=== PATIENT | male | born 1945 | race Caucasian/White ===

== ENCOUNTER → 2025-07-09 11:50 | Outpatient (REF) | payer MEDICARE, SELFPAY ==
[2025-07-09 14:50] LABS: Glycohemoglobin (HgbA1c) 6.3 % (4.0-5.6)
[2025-07-09 15:00] LABS: C-Reactive Protein < 5.00 mg/L (0.0-10.00)
[2025-07-09 15:17] LABS: ALT (SGPT) 26 U/L (0-50); AST (SGOT) 27 U/L (17-59); Albumin 4.8 g/dl (3.5-5.0); Alkaline Phosphatase 78 U/L (38-126); Blood Urea Nitrogen 34 mg/dl (9-20); Calcium 10.3 mg/dl (8.4-10.2); Carbon Dioxide 26 mmol/L (22-30); Chloride 103 mmol/L (98-107); Glucose 102 mg/dl (70-99); HDL Cholesterol 46 mg/dl; LDL Cholesterol, Calculated 89 mg/dl; Potassium 5.3 mmol/L (3.5-5.1); Sodium 138 mmol/L (135-145); Total Protein 7.7 g/dl (6.3-8.2); Very Low Density Lipoprotein 49 mg/dl (0-30); Vitamin D, 25-OH*** 68.3 ng/mL (30-80); eGFR 40.25
[2025-07-09 15:31] LABS: Microalb - Urine Creatinine 80.900 mg/dl
[2025-07-09 15:31] LABS: PSA, Total - Screen 1.26 ng/ml (0.0-4.0)
[2025-07-09 15:32] LABS: Microalbumin, Random Urine 2.3 mg/dl (0.6-1.7)
== END ==
LOC: REG 11:50
PROVIDERS: OTHER PHYSICIAN Hospitalist
DX: E78.5 Hyperlipidemia, unspecified (principal); E56.8 Deficiency of other vitamins; E11.9 Type 2 diabetes mellitus without complications; E55.9 Vitamin D deficiency, unspecified; R97.20 Elevated prostate specific antigen [PSA]; I25.10 Atherosclerotic heart disease of native coronary artery without angina pectoris; Z12.5 Encounter for screening for malignant neoplasm of prostate; E11.22 Type 2 diabetes mellitus with diabetic chronic kidney disease
CPT/HCPCS: 36415; 80053; 80061; 82043; 82248; 82306; 82550; 82570; 83036; 86140; G0103

== ENCOUNTER → 2025-07-18 14:28 | Outpatient (REF) | payer MEDICARE, OTHER, SELFPAY | LOC: RAD 14:28 | PROVIDERS: ATTENDING PHYSICIAN Hospitalist | DX: I71.40 Abdominal aortic aneurysm, without rupture, unspecified (principal) | CPT/HCPCS: 74174; Q9967 ==

== ENCOUNTER 2025-08-21 08:59 | Inpatient (IN) | payer MEDICARE, OTHER, SELFPAY ==
[2025-08-10 09:08] VITALS: BMI 36.6
[2025-08-10 09:56] LABS: Hematocrit 42.4 % (39.0-52.0); Hemoglobin 14.7 g/dL (13.0-18.0); Mean Corp Hgb Conc. 34.7 g/dL (33.0-37.0); Mean Corpuscular Volume 89.8 fL (80.0-94.0); Nucleated Red Blood Cells % 0 % (-); Platelet Count 118 10^3/uL (130-400); Red Cell Dist. Width 12.8 % (11.5-14.5)
[2025-08-10 10:01] LABS: APTT 26.1 Sec (23.4-35.0); INR 0.90; PT 12.5 Sec (11.4-14.6)
[2025-08-10 10:22] LABS: Blood Urea Nitrogen 26 mg/dl (9-20); Calcium 10.0 mg/dl (8.4-10.2); Carbon Dioxide 30 mmol/L (22-30); Chloride 102 mmol/L (98-107); Estimated Creatinine Clearance 48 ml/min; Glucose 112 mg/dl (70-99); Potassium 4.6 mmol/L (3.5-5.1); Sodium 137 mmol/L (135-145); eGFR 50.81
[2025-08-21] VITALS (10 sets, daily range): BP systolic 104–162; BP diastolic 44–75; BMI 35.8
--- NOTE | 2025-08-21 09:42 | W.SUR.PREOP ---
Pre-Operative Surgical Note
-
I have examined this patient prior to the performance of the scheduled procedure.
The patient's condition is unchanged from the time of the current History and
Physical and the patient is able to undergo the scheduled procedure.
[2025-08-21] MEDS: PERIDEX 0.12% ORAL RINSE 15 ML PO (10:06)
[2025-08-21] MEDS: BACTROBAN NASAL 1 GRAM NASAL (10:06)
[2025-08-21 10:44] LABS: Glucose - Point of Care 160 mg/dl (70-99)
[2025-08-21] MEDS: VANCOCIN 530 MG IV (10:53)
[2025-08-21 12:48] LABS: ACT-LR - POC 261 Seconds (116-155)
[2025-08-21 13:03] LABS: ACT-LR - POC 256 Seconds (116-155)
[2025-08-21 14:04] LABS: Glucose - Point of Care 170 mg/dl (70-99)
--- NOTE | 2025-08-21 14:17 | OR.RPT ---
Operative Report
Operative Report
Date of Operation: 08/21/2025
Pre Op Diagnosis: Abdominal aortic aneurysm
Post Op Diagnosis: Abdominal aortic aneurysm
Procedure:
1. Endovascular aortic aneurysm repair using Endologix AFX2 device:
AFX2 main body
28�75 suprarenal proximal extension
2. Insert wire and catheter into aorta from bilateral femoral artery access
3. Bilateral percutaneous common femoral artery access
4. Bilateral Pro-glide closures of common femoral artery access
Surgeon: Franki Byrd III, MD
Manager Bilingual: Dave Queen MD PGY2
Anesthesia: General
Fluoroscopy:
19.2 minutes
1004 mGy
DAP: 395.05
Complications: None
Estimated Blood Loss: Less than 50 cc
History and Indications for Procedure: 80-year-old male with large infrarenal abdominal aortic aneurysm.
Procedure in Detail: Masood Donaldson was correctly identified and placed supine on the operating table. After adequate induction of anesthesia the abdomen, pelvis and bilateral groins were positioned, prepped and draped in the usual sterile fashion.
Preoperative antibiotics were administered. A timeout procedure was performed with the nursing and anesthesia staff confirming the patients identity as well as the nature and laterality of the procedure.
Under ultrasound guidance, bilateral femoral artery sheath access was obtained. The arteries were patent. Calcified plaque was identified bilaterally. A pre-close technique was performed on the right femoral artery access with 2 offset Proglide
closure devices. The sutures were secured and tucked under surgical towels for use at the end of the case. An 8 Fr sheath was placed into the right femoral access. A 7 Fr sheath was placed into the left femoral access. The patient was systemically
heparinized.
From the right femoral access an KMP catheter and Bentson wire were advanced to the proximal descending thoracic aorta. The wire was exchanged out through the catheter for a Lunderquist wire. From the left femoral access a Bentson wire was advanced
into the abdominal aorta.
Over the Lunderquist wire in the right femoral access I placed the AFX introducer sheath and advanced the radio-opaque sheath tip to the abdominal aorta. An En-Snare catheter was placed over a PROVENTIX SYSTEMSson wire from the left femoral access and advanced
to the aortic bifurcation. The En-Snare was then advanced through to the catheter tip.
The contralateral limb wire of the AFX2 main body was introduced through the introducer sheath and advanced to the aortic bifurcation. The 25-70/20-30 AFX2 bifurcated main body was then loaded onto the Lunderquist wire and advanced through the
introducer sheath. The wire was snared from the contralateral side and pulled out the left femoral access and the AFX2 main body was advanced until the limbs were above the aortic bifurcation. The entire system was then pulled down onto the aortic
bifurcation. The main body was then deployed by pulling the control cord.
The contralateral limb was then deployed by pulling the yellow limb cover. Once this was completed I advanced a pigtail catheter over the contralateral limb wire until the tip was in contact with the wire lock. The contralateral limb was then pulled
as I advanced the pigtail up to release it from the wire lock. The wire was removed and the formed pigtail catheter was then advanced proximally.
The ipsilateral limb was deployed by pinning the inner core and retracting the AFX introducer sheath.
Through the introducer sheath I advanced a 28�75 suprarenal endograft extension and performed an arteriogram to clearly visualize the renal arteries. The stent was positioned appropriately below the renal arteries and deployed under roadmap guidance
in the desired location.
The delivery system was removed. A Coda balloon was introduced and used to profile the proximal and distal seal zones as well as all areas of overlap. A 12 mm x 40 mm angioplasty balloon was used to profile the left iliac limb.
A completion aortogram demonstrated an excellent technical result. The aneurysm was excluded. No endoleaks were seen. There was brisk flow through the stent and iliac limbs. The renal arteries were widely patent bilaterally. The iliac bifurcations
were preserved bilaterally. An additional retrograde iliac arteriogram was performed through the left 7 Welsh sheath. There was no type Ib endoleak from the left iliac limb.
The Proglide sutures were secured on the right after removing the sheath and wires. Protamine was administered. A single Pro-glide was deployed across the left femoral access after removing the 7 Welsh sheath. Additional pressure was applied to
the puncture sites bilaterally for 5 minutes. Hemostasis was achieved bilaterally.
Sterile skin glue was applied to the puncture sites bilaterally.
The patient tolerated the procedure well and was taken to the PACU in stable condition.
Attestation: I was present and responsible for the entire procedure
Signed:
Franki Byrd III, MD
Vascular Surgery
[facility]
[2025-08-21 14:58] LABS: Hematocrit 35.8 % (39.0-52.0); Hemoglobin 12.4 g/dL (13.0-18.0); Mean Corp Hgb Conc. 34.6 g/dL (33.0-37.0); Mean Corpuscular Volume 89.3 fL (80.0-94.0); Platelet Count 92 10^3/uL (130-400); Red Cell Dist. Width 13.1 % (11.5-14.5)
[2025-08-21 15:12] LABS: Glucose - Point of Care 154 mg/dl (70-99)
[2025-08-21 15:36] LABS: Blood Urea Nitrogen 19 mg/dl (9-20); Calcium 8.6 mg/dl (8.4-10.2); Carbon Dioxide 22 mmol/L (22-30); Chloride 106 mmol/L (98-107); Estimated Creatinine Clearance 55 ml/min; Glucose 180 mg/dl (70-99); Potassium 3.9 mmol/L (3.5-5.1); Sodium 134 mmol/L (135-145); eGFR > 60.00
--- NOTE | 2025-08-21 15:48 | CON.INTV ---
Consultation
Consultation Request
Date/Time Consultation Requested: 08/21/2025
Date/Time Consultation Performed: 08/21/2025
Medical History
-
Chief Complaint: Enlarging aortic aneurysm
History of Present Illness:
Patient is a very pleasant 80-year-old gentleman with known history of abdominal aortic aneurysm which was noted to have growing infrarenal aneurysm. He was evaluated by cardiology and vascular surgery as outpatient and was recommended to have
endovascular repair performed. Patient was admitted to the hospital for above-mentioned procedure and post surgery was admitted to ICU. Head Field Hockey Coach consultation was requested for further input.
Past medical history. Diabetes, hypertension, hyperlipidemia, coronary artery disease status post PCI and coronary artery bypass graft, fracture, basal cell carcinoma face, triple negative.
Surgical history. Coronary artery bypass grafting 2009, PCI most recently 2021, appendectomy, Mohs procedure for basal cell carcinoma.
Family history. No reported history of lung cancer in the family.
Social history. Prior history of smoking, quit in 1982.
Allergies / Home Medications
Allergies
Allergy/AdvReac Type Severity Reaction Status Date / Time
ampicillin Allergy Itching, Verified 08/21/25 09:49
rash
Penicillins Allergy itching, Verified 08/21/25 09:49
rash
Home Medications
�Medication �Instructions �Recorded �Confirmed �Last Taken �Type
Laxative 1 dose PO PRN PRN constipation 08/07/25 08/07/25 Unknown History
aspirin 81 mg tablet 81 mg PO DAILY 08/07/25 08/21/25 08/20/25 20:00 History
azilsartan medoxomil 40 mg tablet 40 mg PO DAILY 08/07/25 08/21/25 08/21/25 07:30 History
(Edarbi)
clopidogrel 75 mg tablet (Plavix) 75 mg PO DAILY 08/07/25 08/21/25 08/20/25 20:00 History
dapagliflozin propanediol 10 mg 10 mg PO DAILY 08/07/25 08/21/25 08/17/25 07:00 History
tablet (Farxiga)
diltiazem HCl 120 mg 120 mg PO HS 08/07/25 08/21/25 08/20/25 20:00 History
capsule,extended release 24 hr
diltiazem HCl 180 mg 180 mg PO DAILY 08/07/25 08/21/25 08/21/25 07:30 History
tablet,extended release 24 hr
evolocumab 140 mg/mL subcutaneous 140 mg SC Q2W 08/07/25 08/21/25 08/02/25 08:00 History
pen injector (Repatha SureClick)
icosapent ethyl 1 gram capsule 2 g PO BID 08/07/25 08/21/25 08/21/25 07:30 History
(Vascepa)
tirzepatide 10 mg/0.5 mL 10 mg SC QWEEK 08/07/25 08/21/25 08/10/25 08:00 History
subcutaneous pen injector
(Mounjaro)
vit C 250 mg-E 90 mg-zinc 40 2 tab PO BID 08/07/25 08/21/25 08/17/25 08:00 History
mg-copper 1 pa-vbawtc-tzxrtb chew
tablet (PreserVision AREDS-2)
ergocalciferol (vitamin D2) 1,250 1,250 mcg PO TUTH@08 Supplement 08/21/25 08/21/25 08/09/25 History
mcg (50,000 unit) capsule
metformin 500 mg tablet,extended 500 mg PO TID Diabetes 08/21/25 08/21/25 08/20/25 18:00 History
release 24 hr
Review of Systems
-
Hematologic/Lymphatic: Other (All 14 systems reviewed and negative except as stated above in the history of present illness.)
Vitals / Labs / Diagnostic Testing
Vital Signs
Temp Pulse Resp BP Pulse Ox
96.5 F L 51 19 123/59 97
08/21/25 15:37 08/21/25 15:15 08/21/25 15:15 08/21/25 15:11 08/21/25 15:15
Lab Data
08/21/25 14:15
08/21/25 14:15
Diagnostic Testing:
Physical Exam
-
HEENT: Normocephalic
Cardiovascular: S1/S2
Respiratory: Clear and Non-Labored Respirations
GI: Soft and Non Distended
Neurology: Awake and Alert
Skin: Warm
General: Comfortable
Assessment
-
Patient is a 80-year-old gentleman with enlarging infrarenal abdominal aortic aneurysm, s/p endovascular aortic aneurysmal repair by vascular surgery service, POD #0
Continue observation following procedure
Follow neurovascular checks per protocol
ASA, Clopidogrel PO ordered.
Follow BP monitoring and parameters as set by primary team
Cardiac history reviewed
Monitor on telemetry
Pain control per protocol
RASS goal 0
Remote history of smoking, quit in 1982. Incidental finding of pulmonary nodule
CXR reviewed indicating no acute disease
No prior PFTs for review
Encouraged IS
Diet advancement per protocol
Aspiration precautions
GI prophylaxis: Protonix
Cr at baseline, follow UO
Critical I/Os
Void trials
Replete electrolytes as needed
No signs/symptoms suspicious for infectious etiology at this time
Will observe off antibiotics for now
Follow temperatures/CBC
Hb and platelets postoperatively stable
DVT prophylaxis: Heparin s.c.
Other medical diagnoses:
- History of coronary artery disease, s/p coronary artery bypass graft
- History of percutaneous intervention for coronary artery disease (2021)
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
- Hypertension
- Hyperlipidemia
- Diabetes
- RLL pulmonary nodule, incidental [address] A/P 07/2025. Needs outpatient follow-up with PCM in pulmonary clinic. Information added to discharge section
Critical Care time [62 ] mins -- The patient is admitted for acute critical illness for the treatment of vital organ failure and/or prevention of further life-threatening conditions. Total care includes time spent in review of history, physical
exam, medications, hemodynamic/ventilator parameters, laboratory data, imaging and discussion with house staff, pharmacy, respiratory therapy, technology consultant, and nursing
Data:
CXR 08/2025: Unremarkable
CT A/P 07/2025: Infrarenal abdominal aortic aneurysm measuring 5.3 cm. Minimally increased.
Severe atherosclerotic vascular disease. Stable
Gallstone. Stable
Diverticulosis. StableModerate fecal material throughout the colon. Stable
Mild diffuse bladder wall thickening. This can be seen with cystitis and bladder outlet obstruction.
Pulmonary nodules. Stable. The [facility] Pulmonary Nodule Advisory Board will be automatically informed of the findings.
ECHO 04/2023: LVEF 50%, mild LVH. Normal RV. Mild tricuspid regurgitation with pulmonary artery systolic pressure 35.
Stress test 09/2022: Mild reversible defect. Subseuquently had LHC and PCI
[2025-08-21] MEDS: NSS 500 IV (16:04)
[2025-08-21] MEDS: NSS 1000 IV (16:04)
[2025-08-21] MEDS: PROTONIX 40 MG PO (16:05)
[2025-08-21] MEDS: TYLENOL 650 MG PO ×2 (16:05→20:05)
[2025-08-21] MEDS: LOW STRENGTH ASPIRIN 81 MG PO (16:05)
[2025-08-21] MEDS: PLAVIX 75 MG PO (16:05)
[2025-08-21 16:19] LABS: Troponin I 0.032 ng/ml
[2025-08-21 16:26] LABS: Magnesium 2.1 mg/dl (1.6-2.3)
[2025-08-21 16:48] LABS: Glucose - Point of Care 137 mg/dl (70-99)
--- NOTE | 2025-08-21 17:17 | PTCARENOTE ---
Pt admitted to ICU s/p EVAR. Sinus bradycardia with BBB. Reported VT in transit from PACU not witnessed in ICU. Neuro and NV checks WNL. Tolerated HOB flat for 2hr then HOB to 30deg. No N/V after water and meds, adv diet. Byrd draining clear
yellow urine. Bilat femoral arterial sites closed with skin glue, soft. NSS at 80cc/hr, A-line leveled and zeroed.
[2025-08-21] MEDS: HEPARIN 5000 UNITS SC (20:02)
[2025-08-21] MEDS: OCUVITE SOFTGEL 2 CAP PO (20:02)
--- NOTE | 2025-08-21 20:54 | PTCARENOTE ---
Received pt from previous RN. Pt is AAOx3, [place]. Sinus gary in the 40s w/ BBB and prolonged QT, doppler pulses. Site checks per protocol (see worklist). Pt on RA O2 sat 92%, lungs clear. Abd round/obese. Byrd in place, hygiene provided. B/l groin
sites c/d/i. Pt c/o a sore throat, PRN Tylenol given (see MAR). NS infusing @ 80 ml/hr. Right radial sariah zeroed and transduced. CHG bath provided. Call villanueva in reach. Safe environment maintained.
[2025-08-21] MEDS: CARDIZEM CD 120 MG PO (21:08)
[2025-08-21 21:23] LABS: Glucose - Point of Care 187 mg/dl (70-99)
[2025-08-21 21:48] LABS: Troponin I 0.172 ng/ml
[2025-08-21] MEDS: NEO-SYNEPHRINE 250 IV (22:41)
--- NOTE | 2025-08-21 22:51 | PTCARENOTE ---
Pt BP 98/34 (55), Jean Paul gtt started (see worklist).
[2025-08-22] VITALS (10 sets, daily range): BP systolic 126–175; BP diastolic 48–64; BMI 36.7
[2025-08-22] MEDS: TYLENOL 650 MG PO (01:40)
--- NOTE | 2025-08-22 02:05 | PTCARENOTE ---
Pt coughed up a small amount of bloody sputum, ICU GREASE CUP FILLER notified. Hgb stable.
[2025-08-22] MEDS: NSS 1000 IV (03:03)
--- NOTE | 2025-08-22 03:08 | DOWNTIME ---
There was a [employer] Client Sports Attorney Downtime on 08/22/2025 from 0100 to 08/22/2025 at 0255. Downtime documentation of patient's care, including medication administrations, has been reconciled in the electronic record per guidelines. Refer to the
patient's paper chart under the miscellaneous tab to see printed paper medication records and downtime forms.
--- NOTE | 2025-08-22 03:55 | PTCARENOTE ---
Pt asleep O2 sat dropped to 80%, pt placed on 2L NC O2 sat 97%. AM labs provided. Call villanueva in reach. Safe environment maintained.
[2025-08-22 04:20] LABS: INR 1.00; PT 13.5 Sec (11.4-14.6)
[2025-08-22 04:21] LABS: APTT 26.6 Sec (23.4-35.0)
[2025-08-22 04:27] LABS: Hematocrit 35.1 % (39.0-52.0); Hemoglobin 12.4 g/dL (13.0-18.0); Mean Corp Hgb Conc. 35.3 g/dL (33.0-37.0); Mean Corpuscular Volume 90.5 fL (80.0-94.0); Platelet Count 114 10^3/uL (130-400); Red Cell Dist. Width 13.2 % (11.5-14.5)
[2025-08-22 04:41] LABS: Blood Urea Nitrogen 16 mg/dl (9-20); Calcium 8.4 mg/dl (8.4-10.2); Carbon Dioxide 25 mmol/L (22-30); Chloride 109 mmol/L (98-107); Estimated Creatinine Clearance 56 ml/min; Glucose 145 mg/dl (70-99); Potassium 4.3 mmol/L (3.5-5.1); Sodium 137 mmol/L (135-145); eGFR > 60.00
[2025-08-22 05:00] LABS: Troponin I 0.159 ng/ml
[2025-08-22 07:26] LABS: Glucose - Point of Care 154 mg/dl (70-99)
[2025-08-22] MEDS: HEPARIN 5000 UNITS SC (07:29)
[2025-08-22] MEDS: OCUVITE SOFTGEL 2 CAP PO (07:30)
[2025-08-22] MEDS: PROTONIX 40 MG PO (07:30)
[2025-08-22] MEDS: PLAVIX 75 MG PO (07:30)
[2025-08-22] MEDS: LOW STRENGTH ASPIRIN 81 MG PO (07:30)
--- NOTE | 2025-08-22 07:49 | PTCARENOTE ---
report received, assessments per work list. patient c/o mild throat soreness. refuses Tylenol. alert and oriented. monitor bradycardic, prolonged QT and BBB. ankit turned off, right radial arterial line with good waveform, blood return. Cardizem not
given due to bradycardia. lungs with diminished breath sounds. placed on room air, IS encouraged. abdomen obese. active bowel sounds. Byrd draining clear yellow urine. refused blood sugar coverage. vascular team at bedside. call villanueva at reach.
orders pending
[2025-08-22] MEDS: COZAAR 50 MG PO (08:17)
--- NOTE | 2025-08-22 08:26 | W.PN.VS ---
Addendum entered and electronically signed by Chay Shaw MD 08/22/25 10:24:
Seen and examined with WESTON Bell. Agree with findings as noted below. No complaints. Abdomen soft, nondistended, nontender. Groins flat bilaterally. Small incisions clean dry and intact bilaterally. Feet both warm. Plan/as discussed and noted
below.
Original Note:
Today's Communication / Plan
-
Patient seen and examined at bedside with Dr. Chay Shaw, below plan reviewed with attending
Assessment/Plan
-
Assessment: 80-year-old male POD #1 EVAR for AAA
Plan:
Discontinue arterial line
Discontinue Byrd catheter
Out of bed to chair with progression to ambulation as tolerated
Cardiology consultation pending, troponin slightly increased but trending down on third result, patient asymptomatic will await recommendations
Continue DAPT of aspirin 81 mg p.o. daily and Plavix 75 mg p.o. daily
Possible discharge later this afternoon pending cardiology recommendations
Subjective Data
-
Date of Service: August 22, 2025
Patient seen examined at bedside, offers no complaints. Endorses that he feels 'excellent, 'and denies pain, nausea, vomiting, fever, and chills. Denies chest pain.
Objective Data
-
Vital Signs
Temp Pulse Resp BP Pulse Ox
97.6 F 44 9 132/48 95
08/22/25 07:24 08/22/25 08:17 08/22/25 07:45 08/22/25 08:17 08/22/25 07:45
Intake and Output
08/21/25 08/22/25 08/23/25
06:59 06:59 06:59
Intake Total 2862 / 2948 406 / 406
Output Total 2068 / 206 125 / 125
Balance 793 / 879 281 / 281
Intake:
Oral fluids 1540 / 1540 240 / 240
IV fluids (Total) 1322 / 1408 166 / 166
Jean Paul 42 / 48 6 / 6
Nss 1,000 ml @ 80 mls/hr IV . 1280 / 1360 160 / 160
[id number] LACEY Rx#:[id number]
Output:
Urine, Byrd 2068 125 / 125
Lab Results
08/22/25 04:00
08/22/25 04:00
Calcium 8.4 mg/dl (8.4-10.2) 08/22/25 04:00
Phosphorus Cancelled 08/21/25 15:25
Magnesium Cancelled 08/21/25 15:25
Physical Exam
-
No apparent distress, resting in bed comfortably
No tachycardia, heart rate currently in the 50s
No dyspnea on room air
ABD rotund, nondistended, nontender
Bilateral groin puncture sites clean, dry, and with Exofin glue intact, no evidence of hematoma, all surrounding compartments soft
Byrd draining clear urine
Bilateral feet warm, palpable +1 DP
--- NOTE | 2025-08-22 08:29 | CON.CAR ---
Addendum entered and electronically signed by Bryan Magaña MD 08/22/25 13:43:
Echo reviewed with normal LV function and no segmental wall motion abnormalities
Maintaining sinus rhythm on telemetry with no significant ventricular ectopy
Given bradycardia we will plan to decrease diltiazem 120 mg once daily
Stable for discharge from my perspective, outpatient follow-up to be arranged
Addendum entered and electronically signed by Bryan Magaña MD 08/22/25 10:53:
I saw and examined the patient.
The Winder Tender's note was reviewed and I agree with the note.
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 Postop patient was noted to have nonsustained ventricular tachycardia on a portable monitor for
which cardiology was consulted.
I reviewed available telemetry from the PACU as well as ICU which shows sinus rhythm with rare PACs. Some tracings show artifact but I do not see any clear episodes of nonsustained VT.
Patient has been asymptomatic without any chest discomfort, shortness of breath, palpitations or presyncope/syncope
Keep on telemetry while here
Replete electrolytes K>4, Mg>2
Continue home diltiazem
Check echo
We discussed outpatient monitoring engineer but he declined
Troponin elevation noted
Patient has been asymptomatic
No acute ischemic changes on ECG
Check echo as above
Continue aspirin/Plavix and high intensity statin for empiric treatment of known CAD
If echo is unremarkable okay for discharge later today with outpatient follow-up in our office
Original Note:
Consultation
Consultation Request
Date/Time Consultation Requested: 08/21/2025 at 1530
Date/Time Consultation Performed: 08/22/2025 at 0830
Requesting Provider: Dr. Byrd
Performing Provider: Dr. Magaña
Reason for Consultation: Possible NSVT
Medical History
-
History of Present Illness:
Patient came to the hospital yesterday for planned EVAR for known AAA and was admitted postop and noted to have an episode of NSVT prompting cardiology consultation. Patient used to live in work in [place], but now living locally and underwent
planned EVAR for AAA on 08/21/2025. Patient was seen for preoperative cardiovascular risk stratification in the cardiology office on 08/01/2025 and at that point he was asymptomatic without any chest pain or SOB and overall felt to be stable to
proceed with surgery at elevated but not prohibitive risk. Patient denied any intercurrent illness. Following procedure yesterday while being transported with the use of portable monitor patient was removed from the PACU to the ICU and nursing
reported seeing NSVT on the monitor. Patient has a baseline chronic RBBB and LAFB. No rhythm strips are able to be captured from the monitor. 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
the nurses were saying with regards to possible NSVT and denies feeling any symptomatic changes during that time period, he specifically denies any lightheadedness near syncope or chest pain. Patient has remained on telemetry since then without
evidence of arrhythmia, artifact is frequently being flagged as NSVT likely related to his underlying RBBB and LAFB. Patient previously followed with a director of staff development in [place] and records obtained were handwritten and deciphered to the best of our
ability at his office visit on 08/01/2025. No previous echo report available.
PMH:
CAD
CABG 2015
PCI of unknown vessels in 2004 and 2021
Chronic RBBB and LAFB
HTN
Hyperlipidemia
DM 2
CKD 2
Past Medical History
Past Medical History: Other (In HPI)
Past Surgical History: Appendectomy and Cardiac (CABG 2009, PCI 2004 and 2022)
Social History
Tobacco: Former Smoker
Alcohol: Occasional (1-2 times a week)
Drug: None
Personal:
Living: With Family
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
Family History
Family History: CAD (CAD, [place])
Allergies / Home Medications
Allergy/AdvReac Type Severity Reaction Status Date / Time
ampicillin Allergy Itching, Verified 08/21/25 09:49
rash
Penicillins Allergy itching, Verified 08/21/25 09:49
rash
�Medication �Instructions �Recorded �Confirmed �Type
Laxative 1 dose PO PRN PRN constipation 08/07/25 08/07/25 History
aspirin 81 mg tablet 81 mg PO DAILY 08/07/25 08/21/25 History
azilsartan medoxomil 40 mg tablet 40 mg PO DAILY 08/07/25 08/21/25 History
(Edarbi)
clopidogrel 75 mg tablet (Plavix) 75 mg PO DAILY 08/07/25 08/21/25 History
dapagliflozin propanediol 10 mg 10 mg PO DAILY 08/07/25 08/21/25 History
tablet (Farxiga)
diltiazem HCl 120 mg 120 mg PO HS 08/07/25 08/21/25 History
capsule,extended release 24 hr
diltiazem HCl 180 mg 180 mg PO DAILY 08/07/25 08/21/25 History
tablet,extended release 24 hr
evolocumab 140 mg/mL subcutaneous 140 mg SC Q2W 08/07/25 08/21/25 History
pen injector (Repatha SureClick)
icosapent ethyl 1 gram capsule 2 g PO BID 08/07/25 08/21/25 History
(Vascepa)
tirzepatide 10 mg/0.5 mL 10 mg SC QWEEK 08/07/25 08/21/25 History
subcutaneous pen injector
(Mounjaro)
vit C 250 mg-E 90 mg-zinc 40 2 tab PO BID 08/07/25 08/21/25 History
mg-copper 1 [id number] chew
tablet (PreserVision AREDS-2)
ergocalciferol (vitamin D2) 1,250 1,250 mcg PO TUTH@08 Supplement 08/21/25 08/21/25 History
mcg (50,000 unit) capsule
metformin 500 mg tablet,extended 500 mg PO TID Diabetes 08/21/25 08/21/25 History
release 24 hr
Review of Systems
-
History Source: Patient
All other systems: Negative unless noted
Physical Exam
Vital Signs
Temp Pulse Resp BP Pulse Ox
97.6 F 44 9 132/48 95
08/22/25 07:24 08/22/25 08:17 08/22/25 07:45 08/22/25 08:17 08/22/25 07:45
GEN: NAD, AAO x 3
HEENT: EOMI, MMM
LUNGS: RA. CTA B/L, no wheeze
CV: SR on telemetry. Reg, S1/S2, no murmur
ABD: ND
EXT: Trace bimalleolar edema B/L LE
NEURO: Gross non-focal
SKIN: No rash
Lab Results
08/22/25 04:00
08/22/25 04:00
Troponin I 0.159 ng/ml H* 08/22/25 04:00
Impression / Plan
-
PCP: Dr. Misty Shepard
Cardiology: Dr. Magaña
Impression:
Admitted following EVAR 08/21/2025
s/p EVAR for AAA 08/21/2025
Possible NSVT
Seen on portable monitor only while in transit from PACU to ICU 08/21/2025
Elevated troponin
Sinus bradycardia
CAD
CABG 2015
PCI of unknown vessels in 2004 and 2021
Chronic RBBB and LAFB
HTN
Hyperlipidemia
DM 2
CKD 2
Echo 08/22/2025: Study pending
Plan:
-Patient came to the hospital yesterday for planned EVAR for known AAA and was admitted postop and noted to have an episode of NSVT prompting cardiology consultation. Patient used to live in work in [place], but now living locally and underwent
planned EVAR for AAA on 08/21/2025. Patient was seen for preoperative cardiovascular risk stratification in the cardiology office on 08/01/2025 and at that point he was asymptomatic without any chest pain or SOB and overall felt to be stable to
proceed with surgery at elevated but not prohibitive risk. Patient denied any intercurrent illness. Following procedure yesterday while being transported with the use of portable monitor patient was removed from the PACU to the ICU and nursing
reported seeing NSVT on the monitor. Patient has a baseline chronic RBBB and LAFB. No rhythm strips are able to be captured from the monitor. 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
the nurses were saying with regards to possible NSVT and denies feeling any symptomatic changes during that time period, he specifically denies any lightheadedness near syncope or chest pain. Patient has remained on telemetry since then without
evidence of arrhythmia, artifact is frequently being flagged as NSVT likely related to his underlying RBBB and LAFB. Patient previously followed with a director of staff development in [place] and records obtained were handwritten and deciphered to the best of our
ability at his office visit on 08/01/2025. No previous echo report available.
-ECG from 08/21/2025 is reviewed by me shows sinus bradycardia with PACs, RBBB and LAFB
-Telemetry reviewed by me shows episodes possible artifact but when reviewed is SR with underlying RBBB, LAFB and artifact.
-No strips available from portable monitor at time of reported NSVT and patient denies any symptoms during that period of time.
-Check echo
-Pending results of echo would consider outpatient 7-day monitor to look for any additional NSVT, but monitoring here thus far has been unremarkable
-Patient was taking a regimen of Cardizem CD 180 mg AM and then 120 mg PM daily prior to admission. Patient was given his usual dose of Cardizem CD 120 mg on the night of 08/21/2025 and was noted to have bradycardia and was briefly placed on
Jean Paul-Synephrine, but this has been stopped. Heart rate remains in the range of 45 to 50 bpm on my review of vital signs 08/22/2025 AM and so his usual dose of Cardizem CD 180 mg daily is on hold. Will attempt to restart Cardizem CD at a lower dose
of just 120 mg daily and follow on telemetry.
-Initial troponin was 0.032 then up to 0.172 and then trending down. No reports of any chest pain. No acute ischemic changes on ECG. This is likely nonischemic myocardial injury troponin elevation.
-Patient has a history of CAD with PCI and CABG in the past. Outpatient doses of aspirin and Plavix have been continued
--- NOTE | 2025-08-22 11:43 | CARDSERVLU ---
Echocardiogram with [facility] completed after protocol screening completed. Allergies verified.
Patent IV site: _R FA____
IV site flushed with 0.9% NaCl pre and post administration.
Diluted bolus method utilized to enhance visualization of ventricular hernandez.
Total volume given: _2.5___ mL
Patient tolerated all procedures well without complications.
[2025-08-22 12:40] LABS: Glucose - Point of Care 168 mg/dl (70-99)
--- NOTE | 2025-08-22 12:45 | PTCARENOTE ---
tolerating oral intake, refusing insulin. sites pulse checks unchanged. ambulated throughout unit without issue. cardizem held due to heart rate 40's.
--- NOTE | 2025-08-22 12:54 | W.PN.INTV ---
Today's Communication / Plan
Recommendations
- Outpatient follow-up with pulmonary clinic for incidental pulmonary nodule
- Discharge planning per vascular surgery/cardiology service
- Coach Operator service will sign off once transferred out of ICU
Assessment
-
Patient is a very pleasant 80-year-old gentleman with known history of abdominal aortic aneurysm which was noted to have growing infrarenal aneurysm. He was evaluated by cardiology and vascular surgery as outpatient and was recommended to have
endovascular repair performed. Patient was admitted to the hospital for above-mentioned procedure and post surgery was admitted to ICU. Coach Operator consultation was requested for further input.
Patient is a 80-year-old gentleman with enlarging infrarenal abdominal aortic aneurysm, s/p endovascular aortic aneurysmal repair by vascular surgery service, POD #1
Continue observation following procedure
Follow neurovascular checks per protocol
ASA, Clopidogrel PO ordered.
Follow BP monitoring and parameters as set by primary team
Cardiac history reviewed
Mild bradycardia noted. Cardiology service on case, await echocardiogram and further recommendations.
Monitor on telemetry
Pain control per protocol
RASS goal 0
Remote history of smoking, quit in 1982. Incidental finding of pulmonary nodule
CXR reviewed indicating no acute disease
No prior PFTs for review
Encouraged IS
Diet advancement per protocol
Aspiration precautions
GI prophylaxis: Protonix
Cr at baseline, follow UO
Critical I/Os
Void trials
Replete electrolytes as needed
No signs/symptoms suspicious for infectious etiology at this time
Will observe off antibiotics for now
Follow temperatures/CBC
Hb and platelets postoperatively stable
DVT prophylaxis: Heparin s.c.
Other medical diagnoses:
- History of coronary artery disease, s/p coronary artery bypass graft
- History of percutaneous intervention for coronary artery disease (2021)
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
- Hypertension
- Hyperlipidemia
- Diabetes
- RLL pulmonary nodule, incidental [address] A/P 07/2025. Needs outpatient follow-up with PCM in pulmonary clinic. Information added to discharge section
Critical Care time [42 ] mins -- The patient is admitted for acute critical illness for the treatment of vital organ failure and/or prevention of further life-threatening conditions. Total care includes time spent in review of history, physical
exam, medications, hemodynamic/ventilator parameters, laboratory data, imaging and discussion with house staff, pharmacy, respiratory therapy, assistant chief of police, and nursing
Data:
CXR 08/2025: Unremarkable
CT A/P 07/2025: Infrarenal abdominal aortic aneurysm measuring 5.3 cm. Minimally increased.
Severe atherosclerotic vascular disease. Stable
Gallstone. Stable
Diverticulosis. StableModerate fecal material throughout the colon. Stable
Mild diffuse bladder wall thickening. This can be seen with cystitis and bladder outlet obstruction.
Pulmonary nodules. Stable. The [facility] Pulmonary Nodule Advisory Board will be automatically informed of the findings.
ECHO 04/2023: LVEF 50%, mild LVH. Normal RV. Mild tricuspid regurgitation with pulmonary artery systolic pressure 35.
Stress test 09/2022: Mild reversible defect. Subseuquently had LHC and PCI
Subjective Dataa
Subjective Data
Date of Service:
Date of Service: August 22, 2025
Subjective:
Patient comfortably sitting in chair in no acute distress.
Review of Systems
Genitourinary: Other (All 14 systems reviewed and negative except as stated above in the history of present illness.)
Objective Data
Data Reviewed
Vital Signs / I&O / Oxygen:
Vital Signs
Temp Pulse Resp BP Pulse Ox
98.1 F 46 24 144/59 97
08/22/25 11:50 08/22/25 12:00 08/22/25 12:00 08/22/25 12:00 08/22/25 12:00
Intake and Output
08/21/25 08/22/25 08/23/25
06:59 06:59 06:59
Intake Total 2862 / 2948 446 / 446
Output Total 2068 225 / 225
Balance 793 / 879 221 / 221
SaO2 97
Nasal Cannula flow liters per 2
minute
Physical Exam
General: Comfortable
HEENT: Normocephalic
Cardiovascular: S1-S2 and Other (Mild bradycardia noted)
Respiratory: Clear and Non-Labored Respirations
GI: Soft and Non Distended
Neurology: Awake and Alert
Skin: Warm
Labs/Micro/Reports
Lab Data
08/22/25 04:00
08/22/25 04:00
Laboratory Results
08/22/25
04:00
PT 13.5
INR 1.00
APTT 26.6
--- NOTE | 2025-08-22 14:20 | W.DS.TRANS ---
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
-
Discharge Instructions:
Discharge Diagnosis/Procedures EVAR
Diet As tolerated
Activity No strenuous activity
Driving Restrictions No driving for 1 week
Bathing Restrictions OK to Shower
Instructions:
Stand-Alone Forms: Vascular Surg Discharge Instr
Changes to Home Medications: Yes
Discharge Medications:
DC Medications w/original date entered in [employer]
Laxative 1 dose PO PRN PRN constipation 08/07/25
aspirin 81 mg tablet 81 mg PO DAILY Blood Clot Prevention/Tx 08/07/25
azilsartan medoxomil 40 mg tablet (Edarbi) 40 mg PO DAILY Blood Pressure 08/07/25
clopidogrel 75 mg tablet (Plavix) 75 mg PO DAILY Blood Clot Prevention/Tx 08/07/25
dapagliflozin propanediol 10 mg tablet (Farxiga) 10 mg PO DAILY Heart Disease/Condition 08/07/25
evolocumab 140 mg/mL subcutaneous pen injector (Repatha SureClick) 140 mg SC Q2W High Cholesterol 08/07/25
icosapent ethyl 1 gram capsule (Vascepa) 2 g PO BID High Cholesterol 08/07/25
tirzepatide 10 mg/0.5 mL subcutaneous pen injector (Mounjaro) 10 mg SC QWEEK Diabetes 08/07/25
vit C 250 mg-E 90 mg-zinc 40 mg-copper 1 [id number] chew tablet (PreserVision AREDS-2) 2 tab PO BID Supplement 08/07/25
ergocalciferol (vitamin D2) 1,250 mcg (50,000 unit) capsule 1,250 mcg PO TUTH@08 Supplement 08/21/25
metformin 500 mg tablet,extended release 24 hr 500 mg PO TID Diabetes 08/21/25
Held on 08/22/25. Instructions: Resume on 08/24/25.
diltiazem HCl 180 mg tablet,extended release 24 hr 120 mg (0.6667 x 180 mg) PO DAILY Heart Disease/Condition #0 tabs 08/22/25
Home Medication Changes
metformin 500 mg tablet,extended release 24 hr 500 mg PO TID Diabetes 08/21/25
Held on 08/22/25. Instructions: Resume on 08/24/25.
Changed dose of diltiazem HCl 180 mg tab PO daily to 120 mg p.o. daily
Stopped diltiazem HCl 120 mg tablet,extended release 24 hr p.o. nightly
Pending Results: No
--- NOTE | 2025-08-22 15:14 | CM ---
Patient has been medically cleared for discharge to home with no additional skilled services. Patient arranged for transport home.
== END 2025-08-22 15:08 | disposition home or self-care (01) | DRG 269 ==
LOC: ICU 08:59
PROVIDERS: Nurse Practitioner Acute Care; Nurse Practitioner Primary Care; ADMITTING PHYSICIAN Surgery Vascular Surgery; CONSULT PHYSICIAN Internal Medicine; OTHER PHYSICIAN Internal Medicine Cardiovascular Disease; PRIMARYCARE PHYSICIAN Hospitalist
PROC: 04V03DZ Restriction of Abdominal Aorta with Intraluminal Device, Percutaneous Approach (ICD-10-PCS; 2025-08-21)
DX: I71.43 Infrarenal abdominal aortic aneurysm, without rupture (principal); I45.2 Bifascicular block; I47.20 Ventricular tachycardia, unspecified; I5A Non-ischemic myocardial injury (non-traumatic); R91.1 Solitary pulmonary nodule; K57.90 Diverticulosis of intestine, part unspecified, without perforation or abscess without bleeding; N18.2 Chronic kidney disease, stage 2 (mild); E11.22 Type 2 diabetes mellitus with diabetic chronic kidney disease; I12.9 Hypertensive chronic kidney disease with stage 1 through stage 4 chronic kidney disease, or unspecified chronic kidney disease; E78.5 Hyperlipidemia, unspecified; I25.10 Atherosclerotic heart disease of native coronary artery without angina pectoris; Z95.1 Presence of aortocoronary bypass graft; Z98.61 Coronary angioplasty status; Z85.828 Personal history of other malignant neoplasm of skin; Z17.421 Hormone receptor negative with human epidermal growth factor receptor 2 negative status; Z87.891 Personal history of nicotine dependence; Z79.02 Long term (current) use of antithrombotics/antiplatelets; Z79.84 Long term (current) use of oral hypoglycemic drugs; Z79.82 Long term (current) use of aspirin; Z88.0 Allergy status to penicillin; Z79.899 Other long term (current) drug therapy
CPT/HCPCS: 34705; 34709; 36415; 71046; 80048; 82962; 83735; 84100; 84484; 85025; 85027; 85610; 85730; 86850; 86900; 86901; 93005; 93306; C1725; C1760; C1769; C1773; C1894; C2628; Q9950; Q9967

== ENCOUNTER → 2025-09-20 09:06 | Outpatient (REF) | payer MEDICARE, OTHER, SELFPAY | LOC: RAD 09:06 | PROVIDERS: ATTENDING PHYSICIAN Registered Nurse; FAMILY PHYSICIAN Hospitalist | DX: I71.43 Infrarenal abdominal aortic aneurysm, without rupture (principal) | CPT/HCPCS: 74174; Q9967 ==